=== PATIENT | female | born 1990 | race Caucasian/White ===

== ENCOUNTER 2023-01-25 18:17 | Emergency (ER) | payer OTHER ==
[~2023-01-25] VITALS: Ht 162.6 cm; Wt 68.0 kg
--- NOTE | 2023-01-25 18:18 | NUR ---
HELEN RA 89 FROM A URGENT CARE STATIGN THAT SHE WAS AT WORK AND TOOK 2 SOMA AND STARTED TO HAVE TROUBLE WALKING, FEELING DIZZY, AND SLURRED SPEECH. PT WENT TO URGENT CARE AND THEY CALL EMS. BLOOD SUGAR WAS 116 PER EMS. ATTACHED TO MONITOR, HEART RATE ELEVATED. BLOOD GLUCOSE 92. DR CONSTANTINO AT BEDSIDE, AWAITING MD ORDERS.
--- NOTE | 2023-01-25 18:54 | NUR ---
URINE COLLECTED AND SENT
[2023-01-25 18:57] LABS: CALCIUM, SERUM 8.8 mg/dL (8.5-10.1); CREATININE 0.8 mg/dL (0.6-1.3); POTASSIUM 3.2 mmol/L (3.5-5.1)
[2023-01-25 19:44] LABS: BASOPHILS % (AUTO) 0.5 % (0.0-2.0); EOSINOPHILS % (AUTO) 3.5 % (0.0-6.0); HEMATOCRIT 36 % (33-45); LYMPHOCYTES # (AUTO) 2.8 K/uL (0.8-4.8); LYMPHOCYTES % (AUTO) 35.8 % (20.0-44.0); MEAN CORPUSCULAR HGB CONC 33 g/dl (31.0-36.0); MEAN CORPUSCULAR VOLUME 85 fL (82-100); MONOCYTES # (AUTO) 0.5 K/uL (0.1-1.30); MONOCYTES % (AUTO) 6.8 % (2.0-12.0); NEUTROPHILS # (AUTO) 4.2 K/uL (1.8-8.9); NEUTROPHILS % (AUTO) 53.4 % (43.0-81.0); PLATELET COUNT (AUTO) 283 K/uL (150-450); RED BLOOD CELL COUNT(AUTO) 4.22 MIL/uL (4.0-5.2); WHITE BLOOD COUNT (AUTO) 7.9 K/uL (4.3-11.0)
[2023-01-25] MEDS ORDERED: POTASSIUM CHLORIDE 20 MEQ TAB.PRT.SR PO ONE ×2 (20:00→20:08)
--- NOTE | 2023-01-25 20:07 | NUR ---
CALLED LAB REGARDING UA.
[2023-01-25 20:33] LABS: BILIRUBIN,URINE NEGATIVE (NEGATIVE); COLOR,URINE YELLOW (YELLOW); LEUKOCYTE ESTERASE ,URINE NEGATIVE (NEGATIVE); NITRITE, URINE POSITIVE (NEGATIVE); PROTEIN,URINE NEGATIVE (NEGATIVE); UGLUCOSE NEGATIVE (NEGATIVE); UROBILINOGEN,URINE 0.2 EU/dL (0.2)
[2023-01-25] MEDS ORDERED: CEPH500C2 PO (21:18)
--- NOTE | 2023-01-25 21:24 | NUR ---
Patient discharged to home in stable condition. Written and verbal after care instructions given. Patient verbalizes understanding of instruction.IV removed. Catheter intact and site benign. Pressure and 4x4 applied to site. No bleeding noted.
[2023-01-25 21:40] VITALS: BP 110/68
[2023-01-25 22:10] LABS: WBC,URINE 0-2 /HPF (0-3)
[2023-01-25 22:11] LABS: BACTERIA,URINE Many /HPF (None Seen)
[2023-01-25 22:12] LABS: SQUAMOUS EPITHELIAL CELL,UR Many /HPF (None Seen)
== END 2023-01-25 21:40 | disposition home or self-care (01) ==
LOC: ER 18:22
DX: N39.0 Urinary tract infection, site not specified (principal); R47.81 Slurred speech; R26.9 Unspecified abnormalities of gait and mobility; Z79.899 Other long term (current) drug therapy
CPT/HCPCS: 36415; 80048-TC; 81001; 84703-TC; 85025-TC; 87086-TC; G0480